=== PATIENT | female | born 1945 ===

== ENCOUNTER → 2017-06-20 | Outpatient (CLI) | payer MEDICARE, OTHER ==
[~2017-06-20] MED LIST: ALBU90I INH; AZIT250 PO; DULO30 PO; HYDACE5 PO; HYDACE7.5 PO; HYDMOR4; LEVSOD75; MULVITMINF PO; NAPR220 PO; NITRSPRAY SL; OMEP20ER PO; OXYACE5T PO; RABE20; ROSU5 PO; VIIBRYD1 EACH
== END | disposition home or self-care (01) ==
LOC: LAB SHORT 08:02 → PLD 08:02
DX: D48.5 Neoplasm of uncertain behavior of skin (principal)
CPT/HCPCS: 88305

== ENCOUNTER 2020-02-21 07:54 | Day surgery (SDC) | payer MEDICARE, OTHER | END 2020-02-21 23:12 | disposition home or self-care (01) | LOC: MOI US 07:54 | DX: C50.911 Malignant neoplasm of unspecified site of right female breast (principal); E78.5 Hyperlipidemia, unspecified; F41.8 Other specified anxiety disorders; M79.7 Fibromyalgia; Z17.1 Estrogen receptor negative status [ER-]; Z79.899 Other long term (current) drug therapy; Z88.1 Allergy status to other antibiotic agents; Z88.5 Allergy status to narcotic agent; Z88.8 Allergy status to other drugs, medicaments and biological substances; Z85.72 Personal history of non-Hodgkin lymphomas | CPT/HCPCS: 19083; 77065; 88305; 88360 ==

== ENCOUNTER 2020-06-01 00:30 | Day surgery (SDC) | payer MEDICARE, OTHER | END 2020-06-01 22:56 | disposition home or self-care (01) | LOC: ATC 00:30 | DX: E86.0 Dehydration (principal); C50.911 Malignant neoplasm of unspecified site of right female breast; Z79.899 Other long term (current) drug therapy; Z88.5 Allergy status to narcotic agent; Z88.1 Allergy status to other antibiotic agents; Z88.2 Allergy status to sulfonamides; Z88.8 Allergy status to other drugs, medicaments and biological substances ==

== ENCOUNTER 2022-11-22 08:46 | Emergency (ER) | payer MEDICARE, OTHER ==
[~2022-11-22] VITALS: Ht 162.6 cm; Wt 56.7 kg
[2022-11-22 10:21] LABS: BASOPHILS ABSOLUTE AUTO 0.02 K/mm3 (0.00-0.23); BASOPHILS PERCENT AUTO 0 % (0-2); EOSINOPHILS ABSOLUTE AUTO 0.21 K/mm3 (0.00-0.68); EOSINOPHILS PERCENT AUTO 4 % (0-6); Hematocrit 40.1 % (33.0-51.0); Hemoglobin 13.3 g/dL (11.5-16.0); IMMATURE GRAN ABSOLUTE AUTO 0.01 K/mm3 (0.00-0.10); IMMATURE GRAN PERCENT AUTO 0 % (0-1); LYMPHOCYTES ABSOLUTE AUTO 1.46 K/mm3 (0.84-5.20); LYMPHOCYTES PERCENT AUTO 30 % (21-46); MONOCYTES ABSOLUTE AUTO 0.44 K/mm3 (0.16-1.47); MONOCYTES PERCENT AUTO 9 % (4-13); Mean Corpuscular HGB 31.1 pg (26.0-34.0); Mean Corpuscular HGB Conc 33.2 g/dL (31.5-36.5); Mean Corpuscular Volume 94 fL (80-100); Mean Platelet Volume 10.1 fL (9.1-12.4); NEUTROPHILS PERCENT AUTO 56 % (41-73); Platelet Count 219 K/mm3 (150-400); RDW Coefficient Variation 12.4 % (11.7-14.2); RDW Standard Deviation 42.5 fL (35.1-46.3); Red Blood Cell Count 4.27 M/mm3 (3.80-5.20); White Blood Cell Count 4.84 K/mm3 (4.00-11.30)
[2022-11-22 10:55] LABS: Albumin, Blood 3.6 g/dL (3.4-5.0); Albumin/Globulin Ratio 1.2 (0.8-1.8); Bilirubin, Total 0.5 mg/dL (0.1-1.0); Bun/Creatinine Ratio 12.3 (12.0-20.0); Calcium, Blood 8.9 mg/dL (8.5-10.1); Creatinine, Blood 0.82 mg/dL (0.40-1.00); Total Protein, Blood 6.6 g/dL (6.4-8.2)
[2022-11-22] MEDS ORDERED: LETROZOLE2.5 M3 PO (12:41)
[2022-11-22] MEDS ORDERED: PAXIL2010 PO (12:52)
[2022-11-22] MEDS ORDERED: Cyclobenzaprine5 MG PO (12:53)
[2022-11-22] MEDS ORDERED: ROSUVASTATIN CA10 MG PO (12:53)
[2022-11-22] MEDS ORDERED: CALCIUM 600 +1 EA11 PO (12:54)
[2022-11-22 13:11] LABS: Appearance, Urine Clear (Clear); Bilirubin, Urine Neg (Neg); Blood, Urine Neg (Neg); Color, Urine Yellow (P-Yellow); Glucose Qualitative, Urine Neg (Neg); Ketones, Urine Neg (Neg); Leukocyte Esterase, Urine Neg (Neg); Nitrite, Urine Neg (Neg); Protein, Urine Neg (Neg); Urobilinogen, Urine NORM (Normal)
[2022-11-22] MEDS ORDERED: IBUP600 PO (13:30)
[2022-11-22] MEDS ORDERED: METPRE4DP PO (13:30)
[2022-11-22 14:09] VITALS: BP 149/84
== END 2022-11-22 14:10 | disposition home or self-care (01) ==
LOC: ER 08:46
PROVIDERS: Physician Assistant
DX: M54.10 Radiculopathy, site unspecified (principal); C50.919 Malignant neoplasm of unspecified site of unspecified female breast; Z88.2 Allergy status to sulfonamides; Z88.5 Allergy status to narcotic agent; Z88.1 Allergy status to other antibiotic agents; Z88.8 Allergy status to other drugs, medicaments and biological substances; Z79.899 Other long term (current) drug therapy
CPT/HCPCS: 74177; 80053; 81003; 83690; 85025; 96374; 99284-25; J1885; Q9967

== ENCOUNTER 2024-11-12 15:19 | Emergency (ER) | payer MEDICARE, BC ==
[~2024-11-12] VITALS: Ht 162.6 cm; Wt 54.4 kg
[~2024-11-12 15:19] MED LIST changes: +CALCIUM 600 +1 EA11 PO; +Cyclobenzaprine5 MG PO; +IBUP600 PO; +LETROZOLE2.5 M3 PO; +METPRE4DP PO; +PAXIL2010 PO; +ROSUVASTATIN CA10 MG PO
[2024-11-12 16:23] LABS: BASOPHILS ABSOLUTE AUTO 0.02 K/mm3 (0.00-0.23); BASOPHILS PERCENT AUTO 0 % (0-2); EOSINOPHILS ABSOLUTE AUTO 0.15 K/mm3 (0.00-0.68); EOSINOPHILS PERCENT AUTO 3 % (0-6); Hematocrit 39.5 % (33.0-51.0); Hemoglobin 13.3 g/dL (11.5-16.0); IMMATURE GRAN ABSOLUTE AUTO 0.01 K/mm3 (0.00-0.10); IMMATURE GRAN PERCENT AUTO 0 % (0-1); LYMPHOCYTES ABSOLUTE AUTO 1.50 K/mm3 (0.84-5.20); LYMPHOCYTES PERCENT AUTO 28 % (21-46); MONOCYTES ABSOLUTE AUTO 0.43 K/mm3 (0.16-1.47); MONOCYTES PERCENT AUTO 8 % (4-13); Mean Corpuscular HGB Conc 33.7 g/dL (31.5-36.5); Mean Corpuscular Volume 92 fL (80-100); NEUTROPHILS ABSOLUTE AUTO 3.21 K/mm3 (1.96-9.15); NEUTROPHILS PERCENT AUTO 60 % (41-73); NRBC ABSOLUTE 0.00 K/mm3 (0.00-0.02); NRBC Auto 0.0 /100 WBC (0.0-0.2); Platelet Count 245 K/mm3 (150-400); RDW Coefficient Variation 12.4 % (11.7-14.2); RDW Standard Deviation 41.4 fL (35.1-46.3)
[2024-11-12] MEDS ORDERED: PARO30 PO (16:29)
[2024-11-12 16:49] LABS: Alanine Aminotransfer (ALT/SGP 31.0 U/L (12-78); Albumin, Blood 3.6 g/dL (3.4-5.0); Albumin/Globulin Ratio 1.2 (0.8-1.8); Anion Gap 9.0 mmol/L (3-11); Aspartate Aminotrans (AST/SGOT 35.0 U/L (12-37); Bilirubin, Total 0.5 mg/dL (0.1-1.0); Blood Urea Nitrogen 16.0 mg/dL (8-24); CO2, Blood 25.0 mmol/L (21-32); Calcium, Blood 8.9 mg/dL (8.5-10.1); Chloride, Blood 108.0 mmol/L (98-108); Creatinine, Blood 0.84 mg/dL (0.40-1.00); Globulin, Blood 3.1 g/dL (2.2-4.0); Glucose, Blood 110.0 mg/dL (70-99); Potassium, Blood 3.9 mmol/L (3.5-5.5); Sodium, Blood 138.0 mmol/L (136-145); Total Protein, Blood 6.7 g/dL (6.4-8.2)
[2024-11-12] MEDS ORDERED: FURO20 PO (17:53)
[2024-11-12 19:12] VITALS: BP 140/97
== END 2024-11-12 19:14 | disposition home or self-care (01) ==
LOC: ER 15:19
PROVIDERS: Emergency Medicine
DX: J90 Pleural effusion, not elsewhere classified (principal); Z79.899 Other long term (current) drug therapy; Z88.5 Allergy status to narcotic agent; Z88.2 Allergy status to sulfonamides; Z88.1 Allergy status to other antibiotic agents
CPT/HCPCS: 71045; 71260; 80053; 83880; 84484; 85025; 93005; 93010; 99285-25; Q9967

== ENCOUNTER 2024-12-05 14:28 | Inpatient (IN) | payer MEDICARE, BC ==
[~2024-12-05] VITALS: Ht 162.6 cm; Wt 52.0 kg
[~2024-12-05 14:28] MED LIST changes: +FURO20 PO; +PARO30 PO
[2024-12-05 15:11] LABS: BASOPHILS ABSOLUTE AUTO 0.03 K/mm3 (0.00-0.23); BASOPHILS PERCENT AUTO 1 % (0-2); EOSINOPHILS ABSOLUTE AUTO 0.09 K/mm3 (0.00-0.68); EOSINOPHILS PERCENT AUTO 1 % (0-6); Hematocrit 42.2 % (33.0-51.0); Hemoglobin 13.9 g/dL (11.5-16.0); IMMATURE GRAN ABSOLUTE AUTO 0.02 K/mm3 (0.00-0.10); IMMATURE GRAN PERCENT AUTO 0 % (0-1); LYMPHOCYTES ABSOLUTE AUTO 1.36 K/mm3 (0.84-5.20); LYMPHOCYTES PERCENT AUTO 21 % (21-46); MONOCYTES ABSOLUTE AUTO 0.50 K/mm3 (0.16-1.47); MONOCYTES PERCENT AUTO 8 % (4-13); Mean Corpuscular HGB Conc 32.9 g/dL (31.5-36.5); Mean Corpuscular Volume 92 fL (80-100); NEUTROPHILS ABSOLUTE AUTO 4.43 K/mm3 (1.96-9.15); NEUTROPHILS PERCENT AUTO 69 % (41-73); NRBC ABSOLUTE 0.00 K/mm3 (0.00-0.02); NRBC Auto 0.0 /100 WBC (0.0-0.2); Platelet Count 267 K/mm3 (150-400); RDW Coefficient Variation 12.6 % (11.7-14.2); RDW Standard Deviation 42.2 fL (35.1-46.3)
[2024-12-05 15:36] LABS: Alanine Aminotransfer (ALT/SGP 35.0 U/L (12-78); Albumin, Blood 3.6 g/dL (3.4-5.0); Albumin/Globulin Ratio 1.1 (0.8-1.8); Bilirubin, Total 0.7 mg/dL (0.1-1.0); Blood Urea Nitrogen 15.0 mg/dL (8-24); CO2, Blood 28.0 mmol/L (21-32); Calcium, Blood 8.8 mg/dL (8.5-10.1); Chloride, Blood 105.0 mmol/L (98-108); Creatinine, Blood 0.73 mg/dL (0.40-1.00); Globulin, Blood 3.4 g/dL (2.2-4.0); Glucose, Blood 94.0 mg/dL (70-99); Sodium, Blood 137.0 mmol/L (136-145); Total Protein, Blood 7.0 g/dL (6.4-8.2)
[2024-12-05 15:37] LABS: Anion Gap 10.0 mmol/L (3-11); Aspartate Aminotrans (AST/SGOT 60.0 U/L (12-37); Potassium, Blood 5.7 mmol/L (3.5-5.5)
[2024-12-05] MEDS ORDERED: FLU VACC TS2025-26(6MOS UP)/PF 45 MCG/0.5 ML SYRINGE IM ONE (21:05)
[2024-12-05] MEDS ORDERED: FLU VACC TS2025-26(6MOS UP)/PF 45 MCG/0.5 ML SYRINGE IM SCH (21:05)
[2024-12-05] MEDS ORDERED: Ondansetron HCl 2 MG / ML 2ML Vial IV PRN ×2 (21:05→22:25)
[2024-12-05 23:16] VITALS: BP 161/92
[2024-12-06] VITALS (9 sets, daily range): BP systolic 112–154; BP diastolic 80–92
[2024-12-06 06:44] LABS: BASOPHILS ABSOLUTE AUTO 0.02 K/mm3 (0.00-0.23); BASOPHILS PERCENT AUTO 0 % (0-2); EOSINOPHILS ABSOLUTE AUTO 0.22 K/mm3 (0.00-0.68); EOSINOPHILS PERCENT AUTO 3 % (0-6); Hematocrit 39.5 % (33.0-51.0); Hemoglobin 13.1 g/dL (11.5-16.0); IMMATURE GRAN ABSOLUTE AUTO 0.02 K/mm3 (0.00-0.10); IMMATURE GRAN PERCENT AUTO 0 % (0-1); LYMPHOCYTES ABSOLUTE AUTO 1.07 K/mm3 (0.84-5.20); LYMPHOCYTES PERCENT AUTO 16 % (21-46); MONOCYTES ABSOLUTE AUTO 0.69 K/mm3 (0.16-1.47); MONOCYTES PERCENT AUTO 10 % (4-13); Mean Corpuscular HGB Conc 33.2 g/dL (31.5-36.5); Mean Corpuscular Volume 92 fL (80-100); NEUTROPHILS ABSOLUTE AUTO 4.90 K/mm3 (1.96-9.15); NEUTROPHILS PERCENT AUTO 71 % (41-73); NRBC ABSOLUTE 0.00 K/mm3 (0.00-0.02); NRBC Auto 0.0 /100 WBC (0.0-0.2); Platelet Count 246 K/mm3 (150-400); RDW Coefficient Variation 12.2 % (11.7-14.2); RDW Standard Deviation 41.1 fL (35.1-46.3)
[2024-12-06 06:51] LABS: Prothrombin Time Results 11.1 Sec (9.7-11.5)
[2024-12-06 07:22] LABS: Alanine Aminotransfer (ALT/SGP 31.0 U/L (12-78); Albumin, Blood 3.3 g/dL (3.4-5.0); Albumin/Globulin Ratio 1.1 (0.8-1.8); Anion Gap 9.0 mmol/L (3-11); Aspartate Aminotrans (AST/SGOT 27.0 U/L (12-37); Bilirubin, Total 0.5 mg/dL (0.1-1.0); Blood Urea Nitrogen 13.0 mg/dL (8-24); CO2, Blood 26.0 mmol/L (21-32); Calcium, Blood 8.9 mg/dL (8.5-10.1); Chloride, Blood 108.0 mmol/L (98-108); Creatinine, Blood 0.63 mg/dL (0.40-1.00); Globulin, Blood 2.9 g/dL (2.2-4.0); Glucose, Blood 102.0 mg/dL (70-99); Lactate Dehydrogenase (Ld),Bld 251.0 U/L (100-240); Potassium, Blood 3.5 mmol/L (3.5-5.5); Sodium, Blood 139.0 mmol/L (136-145); Total Protein, Blood 6.2 g/dL (6.4-8.2)
[2024-12-06] MEDS ORDERED: Ketorolac Tromethamine 15mg Vial IV PRN (08:50)
--- NOTE | 2024-12-06 10:20 | NUR ---
PT TAKEN TO THORACENTESIS.
--- NOTE | 2024-12-06 10:20 | NUR ---
PT TAKEN TO PARACENTESIS.
--- NOTE | 2024-12-06 11:16 | NUR ---
PT BACK FROM THORACENTESIS. POST-OP VITALS INITIATED.
[2024-12-06 11:37] LABS: Automated BF WBC Count 2.242 K/mm3 (0-999)
[2024-12-06 11:49] LABS: Lactate Dehydrogenase, Body Fl 397 U/L
[2024-12-06 12:13] LABS: RBC Count, Body Fluid 822 /mm3 (0-0)
[2024-12-06 12:14] LABS: Color, Body Fluid Yellow (None-Yellow)
[2024-12-06 12:27] LABS: Lymphocytes, Fluid 3.0 % (0.0-18.0); Monocytes/Mononuclear, Fluid 67.0 % (0.0-50.0); Neutrophils, Fluid 29.0 % (0.0-25.0); Total Cell Count, Body Fluid 100
[2024-12-06] MEDS ORDERED: Polyethylene Glycol 3350 17 gm PO PRN (13:50)
[2024-12-06] MEDS ORDERED: Guaifenesin/Dextromethorphan Syrup 5 ML UDC PO PRN (17:50)
--- NOTE | 2024-12-06 19:21 | NUR ---
SHIFT SUMMARY PT IS A/OX4. SBA. THORACENTESIS COMPLETED THIS MORNING. PT REPORTS MUCH IMPROVEMENT TO PAIN AND DIFFICULTY BREATHING AFTER PROCEDURE. PROCEDURE SITE REMAIN C/D/I. PT IS ON RA, SATS >92%. ON TELE RUNNING NORMAL SINUS RYTHYM.
[2024-12-06] MEDS ORDERED: Docusate Sodium/Senna 1 Tab PO SCH (21:00)
[2024-12-07 03:28] VITALS: BP 150/94
--- NOTE | 2024-12-07 03:47 | NUR ---
SHIFT SUMMARY: AOX4. SBA TO TOILET. VSS ON RA. DENIES PAIN. ENCOURAGED INCENTIVE SPIROMETER THIS SHIFT. CALL LIGHT IS WITHIN REACH. BED IS LOW AND LOCKED.
[2024-12-07 05:23] LABS: Hematocrit 37.6 % (33.0-51.0); Hemoglobin 12.7 g/dL (11.5-16.0); Mean Corpuscular HGB Conc 33.8 g/dL (31.5-36.5); Mean Corpuscular Volume 91 fL (80-100); NRBC ABSOLUTE 0.00 K/mm3 (0.00-0.02); NRBC Auto 0.0 /100 WBC (0.0-0.2); Platelet Count 229 K/mm3 (150-400); RDW Coefficient Variation 12.3 % (11.7-14.2); RDW Standard Deviation 41.2 fL (35.1-46.3)
[2024-12-07 05:48] LABS: Albumin, Blood 3.2 g/dL (3.4-5.0); Anion Gap 7 mmol/L (3-11); Blood Urea Nitrogen 10 mg/dL (8-24); CO2, Blood 27 mmol/L (21-32); Calcium, Blood 8.7 mg/dL (8.5-10.1); Chloride, Blood 107 mmol/L (98-108); Creatinine, Blood 0.69 mg/dL (0.40-1.00); Glucose, Blood 109 mg/dL (70-99); Magnesium, Blood 2.0 mg/dL (1.6-2.4); Phosphorus, Blood 3.9 mg/dL (2.5-4.9); Potassium, Blood 3.4 mmol/L (3.5-5.5); Sodium, Blood 138 mmol/L (136-145)
[2024-12-07 07:26] VITALS: BP 128/86
[2024-12-07 11:37] VITALS: BP 126/84
[2024-12-07] MEDS ORDERED: AMOCLA875 PO (12:48)
[2024-12-07] MEDS ORDERED: ACET325 PO (12:48)
--- NOTE | 2024-12-07 14:15 | NUR ---
DISCHARGE SUMMARY PATIENT DISCHARGED HOME WITH GRANDSON TO DRIVE. INCISION TO BACK CDI WITH BANDAID COVERING. IV REMOVED WITHOUT COMPLICATION. DISCHARGE PACKET GIVEN AND REVIEWED, QUESTIONS ANSWERED, VERBALIZED UNDERSTANDING. INSTRUCTED TO CALL PCP FOR LAB RESULTS. MEDS FAXED TO [facility].
== END 2024-12-07 14:10 | disposition home or self-care (01) | DRG 186 ==
LOC: ER 14:28 → MEDS 14:29 → ER 22:14 → MEDS 22:38
PROVIDERS: Emergency Medicine; Internal Medicine; ADMIT Internal Medicine
PROC: 3E02340 Introduction of Influenza Vaccine into Muscle, Percutaneous Approach (ICD-10-PCS; 2024-12-05)
PROC: 0W9B3ZZ Drainage of Left Pleural Cavity, Percutaneous Approach (ICD-10-PCS; principal; 2024-12-06)
DX: J90 Pleural effusion, not elsewhere classified (principal); J96.01 Acute respiratory failure with hypoxia; M79.7 Fibromyalgia; F32.A Depression, unspecified; E86.0 Dehydration; R10.9 Unspecified abdominal pain; Z88.2 Allergy status to sulfonamides; Z88.5 Allergy status to narcotic agent; Z88.1 Allergy status to other antibiotic agents; Z88.8 Allergy status to other drugs, medicaments and biological substances; Z79.899 Other long term (current) drug therapy; Z85.3 Personal history of malignant neoplasm of breast; Z87.19 Personal history of other diseases of the digestive system; Z90.49 Acquired absence of other specified parts of digestive tract; Z85.72 Personal history of non-Hodgkin lymphomas; Z90.89 Acquired absence of other organs; Z79.51 Long term (current) use of inhaled steroids
CPT/HCPCS: 32555; 36415; 71045; 71046; 80053; 80069; 82465; 83615; 83735; 83880; 84157; 84484; 85025; 85027; 85379; 85610; 85730; 89051; 93005; 93010; 96374; 99285-25; A9270; G0378; J1885

== ENCOUNTER 2025-03-02 06:58 | Inpatient (IN) | payer MEDICARE, BC ==
[~2025-03-02] VITALS: Ht 162.6 cm; Wt 45.4 kg
[~2025-03-02 06:58] MED LIST changes: +ACET325 PO; +AMOCLA875 PO
[2025-03-02 08:19] LABS: BASOPHILS ABSOLUTE AUTO 0.02 K/mm3 (0.00-0.23); BASOPHILS PERCENT AUTO 0 % (0-2); EOSINOPHILS ABSOLUTE AUTO 0.04 K/mm3 (0.00-0.68); EOSINOPHILS PERCENT AUTO 1 % (0-6); Hematocrit 41.1 % (33.0-51.0); Hemoglobin 13.1 g/dL (11.5-16.0); IMMATURE GRAN ABSOLUTE AUTO 0.03 K/mm3 (0.00-0.10); IMMATURE GRAN PERCENT AUTO 1 % (0-1); LYMPHOCYTES ABSOLUTE AUTO 0.60 K/mm3 (0.84-5.20); LYMPHOCYTES PERCENT AUTO 10 % (21-46); MONOCYTES ABSOLUTE AUTO 0.58 K/mm3 (0.16-1.47); MONOCYTES PERCENT AUTO 9 % (4-13); Mean Corpuscular HGB Conc 31.9 g/dL (31.5-36.5); Mean Corpuscular Volume 95 fL (80-100); NEUTROPHILS ABSOLUTE AUTO 4.90 K/mm3 (1.96-9.15); NEUTROPHILS PERCENT AUTO 80 % (41-73); NRBC ABSOLUTE 0.00 K/mm3 (0.00-0.02); NRBC Auto 0.0 /100 WBC (0.0-0.2); Platelet Count 326 K/mm3 (150-400); RDW Coefficient Variation 13.9 % (11.7-14.2); RDW Standard Deviation 48.8 fL (35.1-46.3)
[2025-03-02] MEDS ORDERED: Ondansetron HCl 2 MG / ML 2ML Vial IV ONE (08:20)
[2025-03-02] MEDS ORDERED: FentaNYL Citrate 50 MCG/ML 2 ML Injection IV ONE (08:20)
[2025-03-02 08:21] LABS: Alanine Aminotransfer (ALT/SGP 52.0 U/L (12-78); Albumin, Blood 3.2 g/dL (3.4-5.0); Albumin/Globulin Ratio 1.0 (0.8-1.8); Anion Gap 10.0 mmol/L (3-11); Aspartate Aminotrans (AST/SGOT 46.0 U/L (12-37); Bilirubin, Total 0.5 mg/dL (0.1-1.0); Blood Urea Nitrogen 18.0 mg/dL (8-24); CO2, Blood 30.0 mmol/L (21-32); Calcium, Blood 9.4 mg/dL (8.5-10.1); Chloride, Blood 100.0 mmol/L (98-108); Creatinine, Blood 0.76 mg/dL (0.40-1.00); Globulin, Blood 3.2 g/dL (2.2-4.0); Glucose, Blood 101.0 mg/dL (70-99); Potassium, Blood 3.4 mmol/L (3.5-5.5); Sodium, Blood 137.0 mmol/L (136-145); Total Protein, Blood 6.4 g/dL (6.4-8.2)
[2025-03-02] MEDS ORDERED: NS 1,000 ML IV SCH (09:45)
[2025-03-02] MEDS ORDERED: Polyethylene Glycol 3350 17 gm PO PRN (09:45)
[2025-03-02] MEDS ORDERED: FLU VACC TS2025(65UP)/MF59C/PF 45 MCG/0.5 ML SYRINGE IM SCH (10:00)
[2025-03-02] MEDS ORDERED: OXYC5 PO (11:34)
[2025-03-02] MEDS ORDERED: CYCL10 PO (11:34)
[2025-03-02] MEDS ORDERED: METOPROLOL TART5010 PO (11:34)
[2025-03-02] MEDS ORDERED: ATORVASTATIN CA20 MG PO (11:35)
[2025-03-02 11:41] VITALS: BP 127/78
[2025-03-02] MEDS ORDERED: FentaNYL Citrate 50 MCG/ML 2 ML Injection IV PRN (12:10)
[2025-03-02 13:02] LABS: Prothrombin Time Results 11.4 Sec (9.7-11.5)
[2025-03-02 15:29] VITALS: BP 109/65
--- NOTE | 2025-03-02 18:25 | NUR ---
ASSUMED CARE OF PT PT IS A/O X4 DROWSEY AND RELAXED, O2 AT 6L AND SPO2 AT 96, PT C/O PAIN 8/10 TO RIGHT CHEST WALL, DR REILLY NOTIFIED AND NEW ORDERS GIVEN FOR ADDITIONAL MEDICATION. PT SPO2 CONT GETTING BETTER, O2 DECREASED 4L, PT MAINTAINING 94% THORACENTSSIS TO BE DONE AT SOMEPOINT IN THE MORNING. PAIN WNL AT THE MOMENT.
--- NOTE | 2025-03-02 19:07 | NUR ---
PT ASSISTED TO BSC UP WITH ONE PERSON ASSIST TO BSC PT ART WELL, O2 WAS INCREASED TO 6L FOR TRANSFER AND PT MAINTAINED SPO2 IN THE 90S. O2 RETURNED TO 3L, WHEN BACK IN BED.
[2025-03-02 19:38] VITALS: BP 126/70
[2025-03-02] MEDS ORDERED: Docusate Sodium/Senna 1 Tab PO SCH (21:00)
[2025-03-02] MEDS ORDERED: Ondansetron HCl 2 MG / ML 2ML Vial IV PRN (23:00)
[2025-03-03] MEDS ORDERED: FentaNYL Citrate 50 MCG/ML 2 ML Injection IV PRN (00:50)
[2025-03-03 05:08] VITALS: BP 131/66
--- NOTE | 2025-03-03 06:10 | NUR ---
SHIFT SUMMARY PATIENT A&OX4, ABLE TO MAKE NEEDS KNOWN, CALL LIGHT WITHIN REACH. BED AT LOWEST LEVEL. SOME PAIN T/O SHIFT EXCEPT AFTER HOME MED PER EMAR PATIENT SLEPT WITHOUT DISTRESS. ALTHOUGH WANTED TO MAKE SURE THAT THE WORD GOT PASSED ON ABOUT FENTANYL SENSITIVITY EVENT. PATIENT HAS BEEN DRY HEAVING ALTHOUGH CLAIMS IT IS NOT NAUSEA AND DENIED WANTING MEDS FOR N/V. PATIENT ALSO STATED TO BREAK NURSE "SMALL PILLS GET STUCK FOR A SECOND." THIS RN WATCHED WHAT SEEM LIKE THE PATIENT SWALLOW AIR. 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 ON 3L O2,
[2025-03-03 07:11] VITALS: BP 134/83
[2025-03-03] MEDS ORDERED: Cholecalciferol 1000 Unit Tablet (=25MCG) PO SCH (09:00)
[2025-03-03 10:29] LABS: Automated BF RBC Count 0.002 M/mm3 (0-0); Automated BF WBC Count 4.093 K/mm3 (0-999)
[2025-03-03 10:35] LABS: RBC Count, Body Fluid 2000 /mm3 (0-0)
[2025-03-03 10:48] LABS: Lactate Dehydrogenase, Body Fl 830 U/L
--- NOTE | 2025-03-03 11:08 | NUR ---
CONSULT RECEIVED AND REVIEWED. NO POLST/AD ON FILE OR WITH OPR.
[2025-03-03 11:22] LABS: Color, Body Fluid Yellow (None-Yellow); Lymphocytes, Fluid 13.0 % (0.0-18.0); Monocytes/Mononuclear, Fluid 7.0 % (0.0-50.0); Neutrophils, Fluid 77.0 % (0.0-25.0); Total Cell Count, Body Fluid 100
--- NOTE | 2025-03-03 14:16 | NUR ---
MET WITH PT THIS AM, SHE REPORTS SHE IS "FEELING PRETTY GOOD." SHE STATES SHE IS GOING TO CONTINUE SEEKING ANSWERS FOR NOW, AND IF IT TURNS OUT TO BE CANCER, SHE STATES SHE WILL NOT SEEK TREATMENT. SHE IS PLEASANT, ALERT AND ORIENTED. SHE IS CAPABLE OF MAKING HER OWN DECISIONS, AND NO FURTHER VISITS INDICATED AT THIS TIME.
[2025-03-03 15:37] VITALS: BP 129/74
--- NOTE | 2025-03-03 17:47 | NUR ---
END OF SHIFT NOTE PATIENT RESTING IN BED, A&O4, CALL LIGHT IN REACH, BED IN LOWEST POSITION, PATIENT ABLE TO MAKE NEEDS KNOWN. PATIENT IND IN ROOM, FAMILY AT BEDSIDE. PATIENT HAD ABOUT 1000ML DRAINED WITH THORACENTESIS TODAY. PATIENT STATES PAIN IS A LITTLE BETTER, BREATHING IS ABOUT THE SAME, O2 DECREASED FROM 3L NC TO 1L NC AND STILL HAVING SATS >90%. MIRALAX GIVEN TO PATIENT UPON REQUEST. NO OTHER CONCERNS FOR THIS SHIFT.
--- NOTE | 2025-03-03 17:59 | NUR ---
NOTE SPOKE WITH PATIENTS GRANDDAUGHTER, RICK. PRIOR TO SPEAKING WITH HER, I ASKED THE PATIETN FOR PERMISSION, SHE ASKED THAT I DO NO GO INTO GREAT DETAIL ABOUT HER MEDICAL CONDITION BUT THAT SHE IS DOING WELL AND FEELING BETTER. THE GRAND DAUGHTER WAS ASKING WHEN SHE MIGHT BE DISCHARGE, I TOLD HER THIS IS UNKNOWN AT THIS TIME, I ALSO INFORMED HER THAT THE PATIENT IS DOING WELL AND FEELING BETTER. SHE VERABLIZED UNDERSTANDING
[2025-03-03] MEDS ORDERED: ALBU90OI INH (18:19)
[2025-03-03 19:43] VITALS: BP 132/84
[2025-03-04 03:28] VITALS: BP 122/75
--- NOTE | 2025-03-04 05:04 | NUR ---
SHIFT SUMMARY; PATIENT SLEPT IN SHORT INTTERVALS C/O CONSTIPATION. STATES NO BM FOR 6 DAYS. ORDER FOR FLEETS ENEMA GIVEN. PATIENT ABLE TO RETAIN ABOUT HALF THE FLEETS AND HELD IT FOR AN HOUR. WITH HELP, UP TO BSC, ONLY WATER IN THE BUCKET.
[2025-03-04 07:45] VITALS: BP 128/74
--- NOTE | 2025-03-04 11:12 | NUR ---
1110- VERBAL FROM MD BANDA TO DC CONTINUOUS FLUIDS.
[2025-03-04] MEDS ORDERED: Albuterol HFA200 ACT/6.7 GM INH INH PRN (13:25)
[2025-03-04 15:38] VITALS: BP 125/83
--- NOTE | 2025-03-04 18:38 | NUR ---
SUMMARY- AAOX4. PT WEANED OFF OXYGEN THIS SHIFT. X1 ASSIST TO BSC. PT WALKED ABOUT 30 FEET WITH WALKER AND GAIT BELT THIS SHIFT. NO ACUTE EVENTS THIS SHIFT. PAIN WELL CONTROLLED WITH EMAR PAIN MEDS. PT'S FAMILY UPDATED X2 ON THE PHONE THIS SHIFT AND X1 IN PERSON.
[2025-03-04 19:36] VITALS: BP 116/75
[2025-03-05 02:57] VITALS: BP 106/89
[2025-03-05 04:54] LABS: BASOPHILS ABSOLUTE AUTO 0.02 K/mm3 (0.00-0.23); BASOPHILS PERCENT AUTO 0 % (0-2); EOSINOPHILS ABSOLUTE AUTO 0.13 K/mm3 (0.00-0.68); EOSINOPHILS PERCENT AUTO 2 % (0-6); Hematocrit 40.9 % (33.0-51.0); Hemoglobin 13.0 g/dL (11.5-16.0); IMMATURE GRAN ABSOLUTE AUTO 0.02 K/mm3 (0.00-0.10); IMMATURE GRAN PERCENT AUTO 0 % (0-1); LYMPHOCYTES ABSOLUTE AUTO 0.81 K/mm3 (0.84-5.20); LYMPHOCYTES PERCENT AUTO 12 % (21-46); MONOCYTES ABSOLUTE AUTO 1.03 K/mm3 (0.16-1.47); MONOCYTES PERCENT AUTO 16 % (4-13); Mean Corpuscular HGB Conc 31.8 g/dL (31.5-36.5); Mean Corpuscular Volume 94 fL (80-100); NEUTROPHILS ABSOLUTE AUTO 4.51 K/mm3 (1.96-9.15); NEUTROPHILS PERCENT AUTO 69 % (41-73); NRBC ABSOLUTE 0.00 K/mm3 (0.00-0.02); NRBC Auto 0.0 /100 WBC (0.0-0.2); Platelet Count 307 K/mm3 (150-400); RDW Coefficient Variation 13.6 % (11.7-14.2); RDW Standard Deviation 47.2 fL (35.1-46.3)
[2025-03-05 05:17] LABS: Anion Gap 6.0 mmol/L (3-11); Blood Urea Nitrogen 6.0 mg/dL (8-24); CO2, Blood 31.0 mmol/L (21-32); Calcium, Blood 9.0 mg/dL (8.5-10.1); Chloride, Blood 101.0 mmol/L (98-108); Creatinine, Blood 0.53 mg/dL (0.40-1.00); Glucose, Blood 106.0 mg/dL (70-99); Potassium, Blood 3.2 mmol/L (3.5-5.5); Sodium, Blood 135.0 mmol/L (136-145)
--- NOTE | 2025-03-05 05:28 | NUR ---
Shift Summary- - Events: Pain managed with one administration per EMR. Following administration, the patient moved to the bedside and appeared mildly confused. Patient was assisted back to bed and the bed alarm was set. - Orientation: A/Ox4 (see above). - Safety: Fall risk; bed alarm active. - Ambulation: 1-person assist; bed alarm required following pain medication administration. - Medication: Whole with water. - Toileting: Bedside commode (BSC).
[2025-03-05 05:54] LABS: pH Blood Venous 7.43 (7.34-7.37)
[2025-03-05 07:19] VITALS: BP 151/87
--- NOTE | 2025-03-05 11:34 | NUR ---
1105- VERBAL FROM MD BANDA THAT PT CAN HAVE A NO IV ORDER. PLACE A HOME O2 EVAL FOR TOMORROW'S ANTICIPATED DC TO HOME. DOES NOT WANT TO ORDER ANXIETY MEDS FOR PT-PT TO USE ORDERED OXY TO HELP WITH PAIN AND ANXIETY.
[2025-03-05 15:42] VITALS: BP 118/74
--- NOTE | 2025-03-05 17:54 | NUR ---
SUMMARY- AAOX3-4. SBA-X1 ASSIST TO X1 ASSIST TO BATHROOM/CHAIR/HALLWAY WITH WALKER AND GAIT BELT. THIS RN WALKED WITH PT ABOUT 50 FEET IN THE HALLWAY THIS SHIFT. PT DID NEED TO BE PALCED ON 2L OXYGEN THIS AFTERNOON AND IS STILL REQUIRING IT DUE TO O2 SATS DROPPING IN THE MID 80'S WITH REST AND EXERTION. PAIN WELL CONTROLLED WITH EMAR PAIN MEDS. PT HAS MINIMAL APPETITE-ASSISTANT EDITOR ASKED TO SPEAK WITH PT AND PT WAS COUNSELED THIS SHIFT.
[2025-03-05 19:17] VITALS: BP 126/74
[2025-03-06 02:44] VITALS: BP 115/77
--- NOTE | 2025-03-06 06:31 | NUR ---
Shift Summary- - Events: Increased SOB and anxiety; patient rested for the remainder of the shift after being medicated per EMR. - Orientation: A/Ox4. - Safety: Fall risk; bed alarm active. - Ambulation: 1-person assist. - Medication: Taken whole with water. - Toileting: Bedside commode (BSC). LBM was one week ago.
[2025-03-06 07:23] VITALS: BP 128/75
[2025-03-06 16:22] VITALS: BP 123/79
--- NOTE | 2025-03-06 19:36 | NUR ---
SUMMARY PT CONTINUES TO REPORT SHORTNESS OF BREATH/STATES UNABLE TO TAKE DEEP BREATHS. PT EDUCATED ON INCENTIVE SPIROMETER USE AND SHE DEMONSTRATED USE BACK TO ME. PT DID NOT REQUIRE ANY PRN'S TODAY. STATES SHE HAS ASSOCIATED PAIN WITH BREATHING BUT NOT ENOUGH TO REQUIRE MEDICATION MANAGEMENT. STAND BY ASSIST TO BATHROOM TODAY. PT STIL HAS NOT HAD A BOWEL MOVEMENT. DULCOLAX SUPPOSITORY ADMINISTERED TODAY X1. PT FELT THE URGE TO GO AND SAT ON THE TOILET FOR A BIT BUT UNABLE TO GO. PRN MIRILAX WAS GIVEN THIS EVENING. AT SHIFT CHAGNE PT WAS STILL SIPPING ON THIS. UPDATED NOX CORY RAMIRES MAYBE SOME ABDOMINAL IMAGING COULD BE COMPLETED BEFORE PRN ENEMA TO BE STARTED. PT COULD NOT TELL ME DATE OF LAST BM ONLY STATES PROBABLY A LITTLE MORE THAN A WEEK AGO. PT HAS POOR APPETITE BUT IS EATING SMALL AMOUNTS DURING MEAL TIMES. HYPOACTIVE BOWEL SOUNDS THROUGHOUT. PT DENIES NAUSEA TODAY. HOME O2 EVAL WAS COMPLTED WITH RT TODAY. PT POTENTIAL DC TOMORROW PENDING RESOLUTION OF CONSTIPATION.
[2025-03-06 19:46] VITALS: BP 112/74
[2025-03-07 04:36] VITALS: BP 106/69
--- NOTE | 2025-03-07 06:18 | NUR ---
SHIFT SUMMARY PATIENT ADMITTED FOR ACUTE HYPOXIC RESPIRATORY FAILURE. PATIENT ALERT AND ORIENTED X4, ABLE TO MAKE NEEDS KNOWN. PATIENT CONTINUES TO BE CONSTIPATED AND REQUESTED AN ENEMA THIS MORNING. COMPLAINING OF SORES IN NOSE AND REQUESTING ANTIBIOTICS. BED IN LOWEST POSITION FOR SAFETY. CALL LIGHT WITHIN REACH. BED RAILS UP X2.
[2025-03-07 07:33] VITALS: BP 107/67
[2025-03-07] MEDS ORDERED: Polyethylene Glycol 3350 17 gm PO SCH (09:00)
[2025-03-07] MEDS ORDERED: Acetaminophen650 M1 PO (11:15)
[2025-03-07] MEDS ORDERED: DOCUZEN 8.6-501 EACH PO (11:16)
[2025-03-07] MEDS ORDERED: PARO30 PO (11:17)
[2025-03-07] MEDS ORDERED: MIRALAX11914 PO (11:17)
[2025-03-07] MEDS ORDERED: Vitamin D1000 UNI1 PO (11:18)
--- NOTE | 2025-03-07 15:57 | NUR ---
DISCHARGE NOTE PT FAMILY BROUGHT IN CLOTHES AND SHOES FROM HOME. PT AND FAMILY EDUCATED ON DISCHARGE MEDICATIONS AND INSTRUCITONS. TO FOLLOW UP WITH PCP WITHIN ONE WEEK. PT DID NOT QAULIFY FOR HOME 02. NO IV TO BE REMOVED. HARD SCRIPT PROVIDED TO PT AND PLACED IN DISCHARGE FOLDER. PT ESCORTED DOWN VIA WHEELCHAIR BY CASHIER OR CHECKER STOCK CLERK. NO NEW QUESTIONS FROM PT OR FAMILY PRIOR TO DC. PT HAD A VERY SMALL BM AFTER PRN ENEMA TODAY. TO GO HOME WITH BOWEL REGIMEN.
== END 2025-03-07 16:00 | disposition home health service (06) | DRG 186 ==
LOC: ER 06:58 → MEDS 09:41
PROVIDERS: Emergency Medicine; Internal Medicine; ADMIT Internal Medicine
PROC: 0W993ZZ Drainage of Right Pleural Cavity, Percutaneous Approach (ICD-10-PCS; principal; 2025-03-03)
DX: J90 Pleural effusion, not elsewhere classified (principal); E43 Unspecified severe protein-calorie malnutrition; J96.01 Acute respiratory failure with hypoxia; Z68.1 Body mass index [BMI] 19.9 or less, adult; C50.919 Malignant neoplasm of unspecified site of unspecified female breast; M79.7 Fibromyalgia; I45.10 Unspecified right bundle-branch block; G43.909 Migraine, unspecified, not intractable, without status migrainosus; M54.50 Low back pain, unspecified; G89.29 Other chronic pain; M19.90 Unspecified osteoarthritis, unspecified site; Z98.890 Other specified postprocedural states; Z85.3 Personal history of malignant neoplasm of breast; Z90.49 Acquired absence of other specified parts of digestive tract; Z88.2 Allergy status to sulfonamides; Z88.5 Allergy status to narcotic agent; Z88.8 Allergy status to other drugs, medicaments and biological substances; Z79.899 Other long term (current) drug therapy
CPT/HCPCS: 32555; 36415; 71045; 72100; 76604; 80048; 80053; 82803; 83615; 84157; 85025; 85610; 85730; 87070; 87205; 89051; 93005; 93010; 94640; 94664; 94761; 94762; 96374; 96375; 97116; 97162; 97530; 99285-25; A9270; J2405; J3010; J7030